=== PATIENT | female | born 2000 | race Caucasian/White ===

== ENCOUNTER → 2025-04-25 | Outpatient (CLI) | payer OTHER | LOC: M RAD 15:32 | PROVIDERS: ATTEND Nurse Practitioner Family | DX: O10.913 Unspecified pre-existing hypertension complicating pregnancy, third trimester (principal); Z3A.30 30 weeks gestation of pregnancy ==

== ENCOUNTER → 2025-05-29 | Outpatient (REF) | payer OTHER | LOC: M PLALAB 10:37 | PROVIDERS: ATTEND Nurse Practitioner Family | DX: Z3A.35 35 weeks gestation of pregnancy (principal) ==

== ENCOUNTER → 2025-05-30 | Outpatient (CLI) | payer OTHER | LOC: M WHC 11:57 | PROVIDERS: ATTEND Nurse Practitioner Family | DX: O10.913 Unspecified pre-existing hypertension complicating pregnancy, third trimester (principal); Z3A.36 36 weeks gestation of pregnancy ==

== ENCOUNTER 2025-06-21 16:52 | Outpatient (CLI) | payer OTHER ==
[~2025-06-21] VITALS: Ht 157.5 cm; Wt 93.3 kg
[2025-06-21] VITALS (9 sets, daily range): BP systolic 110–144; BP diastolic 60–96; O2SAT 98
[2025-06-21] MEDS ORDERED: TUMS500C PO (17:18)
[2025-06-21] MEDS ORDERED: ASPI81CH33 PO (17:18)
[2025-06-21] MEDS ORDERED: ACET-907 PO (17:18)
[2025-06-21] MEDS ORDERED: PRENTAB9 PO (17:18)
[2025-06-21] MEDS ORDERED: LABE100T40 PO (17:18)
[2025-06-21] MEDS ORDERED: HOME MED LIST COMPLETE! XX SCH (17:50)
[2025-06-21 18:38] LABS: TOTAL PROTEIN,RANDOM URINE < 6.0 MG/DL (0.0-14.0)
[2025-06-21 19:29] LABS: PLATELET COUNT, AUTOMATED 315 10^3/uL (150-450)
[2025-06-21 19:53] LABS: LDH LACTATE DEHYDROGENASE 169 U/L (120-246)
[2025-06-21 19:54] LABS: ALT/SGPT 20 U/L (7.0-40); AST/SGOT 22 U/L (<34); CREATININE FOR GFR 0.71 MG/DL (0.55-1.30); GLOMERULAR FILTRATION RATE > 90.0 (>60)
== END 2025-06-21 22:03 | disposition home or self-care (01) ==
LOC: M LDO 16:52
PROVIDERS: ATTEND Obstetrics & Gynecology
DX: O10.013 Pre-existing essential hypertension complicating pregnancy, third trimester (principal); O26.893 Other specified pregnancy related conditions, third trimester; R10.2 Pelvic and perineal pain; Z3A.39 39 weeks gestation of pregnancy
CPT/HCPCS: 59025; 82247; 82570; 83615; 84156; 84450; 84460; 84550; 85027; G0463

== ENCOUNTER → 2025-06-21 | Outpatient (CLI) | payer OTHER ==
[~2025-06-21] MED LIST: ACET-907 PO; ASPI81CH33 PO; LABE100T40 PO; PRENTAB9 PO; TUMS500C PO
== END ==
LOC: M WHC 15:05
PROVIDERS: ATTEND Nurse Practitioner Family
DX: O10.913 Unspecified pre-existing hypertension complicating pregnancy, third trimester (principal)

== ENCOUNTER 2025-06-22 10:53 | Inpatient (IN) | payer OTHER ==
[2025-06-22] VITALS (25 sets, daily range): BP systolic 109–155; BP diastolic 57–95
[~2025-06-22] VITALS: Ht 157.5 cm; Wt 91.5 kg
[2025-06-22] MEDS: LR 1,000 ML IV SCH (05:29)
[2025-06-22] MEDS ORDERED: CARBOPROST TROMETHAMINE 250 MCG/ML AMP IM PRN (14:15)
[2025-06-22] MEDS ORDERED: LIDOCAINE 1% MDV 20 ML VIAL INFIL PRN (14:15)
[2025-06-22] MEDS ORDERED: METHYLERGONOVINE MALEATE 0.2 MG/ML 1 ML VIAL IM PRN (14:15)
[2025-06-22 14:18] LABS: PLATELET COUNT, AUTOMATED 316 10^3/uL (150-450)
[2025-06-22 14:40] LABS: HEPATITIS B SURFACE ANTIBODY NEGATIVE (POSITIVE)
[2025-06-22] MEDS: miSOPROStol 50 MCG 1/2 TABLET PO SCH (14:47)
[2025-06-22 15:04] LABS: HIV 1&2 SCREEN NEGATIVE (NEGATIVE)
[2025-06-22 15:12] LABS: HEPATITIS C VIRUS ABY INDEX < 0.02 INDEX (<0.8)
[2025-06-22] MEDS: LABETALOL 100 MG TAB PO SCH (20:56)
[2025-06-22] MEDS: LACTATED RINGER'S 1000 ML IV STA (21:25)
[2025-06-22] MEDS ORDERED: NALOXONE INJ 0.4 MG/1 ML VIAL IV PRN (21:55)
[2025-06-22] MEDS ORDERED: EPIDURAL/PCA KEYS XX PRN (21:55)
[2025-06-22] MEDS ORDERED: LR 500 ML IV PRN (21:55)
[2025-06-22] MEDS ORDERED: diphenhydrAMINE 50 MG/ML VIAL IV PRN (21:55)
[2025-06-22] MEDS: FENTANYL/ROPIVACAINE/NACL BAG 100 ML EPIDURAL SCH (22:04)
[2025-06-22] MEDS: OXYTOCIN DRIP 30 UNITS in IV 1 EA IV SCH (22:46)
[2025-06-23] VITALS (59 sets, daily range): BP systolic 94–163; BP diastolic 50–102; O2SAT 98–99
[2025-06-23] MEDS: CALCIUM CARBONATE 500 MG CHEW U/D PO ONE (03:08)
[2025-06-23] MEDS: CALCIUM CARBONATE 500 MG CHEW U/D PO PRN (09:16)
[2025-06-23] MEDS ORDERED: HOME MED LIST COMPLETE! XX SCH (10:15)
[2025-06-23] MEDS: OXYTOCIN DRIP 30 UNITS in IV 1 EA IV PRN (15:57)
[2025-06-23 16:05] LABS: CORD GAS ABE A -15.8; CORD GAS ABE V -14.4; CORD GAS HCO3 A 15.0 MMOL/L; CORD GAS HCO3 V 16.9 MMOL/L; CORD GAS O2 SAT A 31.0 %; CORD GAS O2 SAT V 17.8 %; CORD GAS PCO2 A 57.4 mmHg; CORD GAS PCO2 V 64.8 mmHg; CORD GAS PH A 7.034 UNITS; CORD GAS PH V 7.035 UNITS; CORD GAS PO2 A 19.4 mmHg; CORD GAS PO2 V 14.1 mmHg; CORD GAS SBC A 11.4 MMOL/L; CORD GAS SBC V 12.2 MMOL/L; CORD GAS TCO2 A 16.7 MMOL/L; CORD GAS TCO2 V 18.9 MMOL/L
[2025-06-23] MEDS: TRANEXAMIC ACID INJection 1,000 MG in NS 100 ML IV PRN (16:17)
[2025-06-23] MEDS ORDERED: MOM 30 ML SUSPENSION UDC PO PRN (16:35)
[2025-06-23] MEDS ORDERED: RHOGAM 300MCG (1500IU) INJ IM SCH (16:35)
[2025-06-23] MEDS: OXYTOCIN DRIP 30 UNITS in IV 1 EA IV SCH (16:50)
[2025-06-23] MEDS: PRENATAL VITAMINS CHEWABLE TABLET PO SCH (18:02)
[2025-06-23] MEDS: FERROUS SULFATE 325 MG TAB PO SCH (18:02)
[2025-06-23] MEDS: IBUPROFEN 800 MG TAB PO PRN (18:34)
[2025-06-23] MEDS: ONDANSETRON 4MG 2ML VIAL IV PRN (19:49)
[2025-06-23] MEDS: ACETAMINOPHEN 500 MG TAB PO PRN (19:49)
[2025-06-23] MEDS: DIBUCAINE 1% OINTMENT 30 GM TOP PRN (20:33)
[2025-06-23] MEDS: DOCUSATE SODIUM 100 MG CAPSULE PO SCH (20:41)
[2025-06-24 05:59] VITALS: BP 118/70; O2SAT 98
[2025-06-24] MEDS: ANUSOL HC CREAM 30 GM TOP PRN (13:31)
[2025-06-24 19:00] VITALS: BP 135/79
[2025-06-25 06:00] VITALS: BP 122/76; O2SAT 98
[2025-06-25] MEDS: MEASLES,MUMPS,RUBELLA VACCINE INJ (MMR-II) SC.IMMUN ONE (07:08)
[2025-06-25 08:43] VITALS: BP 132/74
[2025-06-25] MEDS: FLUZONE VACCINE TRIVALENT PF(25-26) 0.5ML SYRINGE IM.IMMUN ONE (08:44)
[2025-06-25] MEDS ORDERED: ACET-683 PO (12:24)
[2025-06-25] MEDS ORDERED: IBUP80TA PO (12:24)
== END 2025-06-25 15:46 | disposition home or self-care (01) | DRG 807 ==
LOC: M LDO 10:53 → M LDI 11:59 → M OBS 06-23 19:02
PROVIDERS: ADMIT Advanced Practice Midwife; ATTEND Obstetrics & Gynecology
PROC: 3E0P7GC Introduction of Other Therapeutic Substance into Female Reproductive, Via Natural or Artificial Opening (ICD-10-PCS; 2025-06-22)
PROC: 10D07Z6 Extraction of Products of Conception, Vacuum, Via Natural or Artificial Opening (ICD-10-PCS; principal; 2025-06-23)
PROC: 0KQM0ZZ Repair Perineum Muscle, Open Approach (ICD-10-PCS; 2025-06-23)
DX: O10.02 Pre-existing essential hypertension complicating childbirth (principal); Z37.0 Single live birth; Z3A.39 39 weeks gestation of pregnancy; Z79.82 Long term (current) use of aspirin; Z79.899 Other long term (current) drug therapy; O75.81 Maternal exhaustion complicating labor and delivery; O32.6XX0 Maternal care for compound presentation, not applicable or unspecified; O70.1 Second degree perineal laceration during delivery

== ENCOUNTER 2025-06-26 18:39 | Emergency (ER) | payer OTHER ==
[~2025-06-26] VITALS: Ht 157.5 cm; Wt 86.9 kg
[~2025-06-26 18:39] MED LIST changes: +ACET-683 PO; +IBUP80TA PO
[2025-06-26 18:47] VITALS: TEMP 98.2
[2025-06-26 20:07] LABS: BASO # 0.0 10^3/uL (0.0-0.2); BASO % 0.3 % (0.0-1.0); EOS # 0.5 10^3/uL (0.0-0.5); EOS % 3.6 % (0.0-3.0); LYMPH # 2.7 10^3/uL (1.5-5.0); LYMPH % 21.0 % (24.0-44.0); MONO # 0.8 10^3/uL (0.0-0.8); MONO % 5.8 % (2.0-8.0); NEUTROPHILS # 8.8 10^3/uL (1.5-8.5); NEUTROPHILS % 68.5 % (36.0-66.0); PLATELET COUNT, AUTOMATED 362 10^3/uL (150-450)
[2025-06-26 20:40] LABS: C REACTIVE PROTEIN QUANTITATIV 3.82 MG/DL (<1.0)
[2025-06-26 20:41] LABS: ALT/SGPT 49 U/L (7.0-40); AST/SGOT 52 U/L (<34); CALCIUM LEVEL 9.0 MG/DL (8.5-10.1); CARBON DIOXIDE LEVEL 26 MMOL/L (20-31); CHLORIDE LEVEL 105 MMOL/L (98-107); CREATININE FOR GFR 0.77 MG/DL (0.55-1.30); GLOMERULAR FILTRATION RATE > 90.0 (>60); MAGNESIUM LEVEL 1.8 MG/DL (1.8-2.4); POTASSIUM SERUM 4.0 MMOL/L (3.5-5.1); SODIUM LEVEL 141 MMOL/L (136-145)
[2025-06-26] MEDS: ONDANSETRON 4MG/2ML VIAL IV ONE (21:10)
[2025-06-26] MEDS: NS 500 ML IV ONE (21:10)
[2025-06-26 21:31] LABS: INR 0.9
[2025-06-26 21:38] LABS: TOTAL PROTEIN,RANDOM URINE 16.7 MG/DL (0.0-14.0)
[2025-06-26] MEDS ORDERED: PROHANCE 279.3MG/ML 5ML VIAL As Ordered ONE (22:22)
[2025-06-26] MEDS ORDERED: PROHANCE 279.3MG/ML 15ML VIAL As Ordered ONE (22:23)
[2025-06-27 00:14] VITALS: BP 135/78; O2SAT 97
== END 2025-06-27 01:08 | disposition home or self-care (01) ==
LOC: M ED 18:39
DX: M51.26 Other intervertebral disc displacement, lumbar region (principal); M51.371 Other intervertebral disc degeneration, lumbosacral region with lower extremity pain only; R33.9 Retention of urine, unspecified; R20.2 Paresthesia of skin; Z79.1 Long term (current) use of non-steroidal anti-inflammatories (NSAID); Z79.899 Other long term (current) drug therapy
CPT/HCPCS: 36415; 51702; 72131; 72158; 80053; 82330; 82570; 83735; 84156; 85025; 85610; 85730; 86140; 96361; 96374; 96375; 99284; A9576; J2405; J2765

== ENCOUNTER → 2025-09-05 | Outpatient (REF) | payer OTHER ==
[2025-09-05 14:55] LABS: APPEARANCE, URINE CLOUDY (CLEAR); BACTERIA, URINE AUTO 1+ (NEGATIVE); BILIRUBIN, URINE AUTO NEGATIVE (NEGATIVE); BLOOD, URINE BLOOD 2+ (NEGATIVE); GLUCOSE, URINE (UA) AUTO NEGATIVE (NEGATIVE); KETONE, URINE AUTO NEGATIVE (NEGATIVE); LEUKOCYTE ESTERASE, URINE AUTO 2+ (NEGATIVE); NITRITE, URINE AUTO POSITIVE (NEGATIVE); PROTEIN, URINE AUTO 1+ mg/dL (NEGATIVE); RBC, URINE AUTO 152 /HPF (0-3); SPECIFIC GRAVITY URINE AUTO 1.013 (1.002-1.035); SQUAMOUS EPITHELIAL CELL UR AU 1 /HPF (0-6); UROBILINOGEN, URINE AUTO 0.2 mg/dL (0.0-2.0); WBC, URINE AUTO TNTC /HPF (0-3)
== END ==
LOC: M SMT 13:11
PROVIDERS: ATTEND Nurse Practitioner Family
DX: R39.9 Unspecified symptoms and signs involving the genitourinary system (principal)

== ENCOUNTER → 2025-09-24 | Outpatient (REF) | payer OTHER ==
[2025-09-24 15:52] LABS: APPEARANCE, URINE CLOUDY (CLEAR); BACTERIA, URINE AUTO 2+ (NEGATIVE); BILIRUBIN, URINE AUTO NEGATIVE (NEGATIVE); BLOOD, URINE BLOOD NEGATIVE (NEGATIVE); GLUCOSE, URINE (UA) AUTO NEGATIVE (NEGATIVE); KETONE, URINE AUTO NEGATIVE (NEGATIVE); LEUKOCYTE ESTERASE, URINE AUTO 2+ (NEGATIVE); MUCUS, URINE LARGE (NEGATIVE); NITRITE, URINE AUTO POSITIVE (NEGATIVE); PROTEIN, URINE AUTO 3+ mg/dL (NEGATIVE); RBC, URINE AUTO 27 /HPF (0-3); SPECIFIC GRAVITY URINE AUTO 1.025 (1.002-1.035); SQUAMOUS EPITHELIAL CELL UR AU 0 /HPF (0-6); UROBILINOGEN, URINE AUTO 0.2 mg/dL (0.0-2.0); WBC, URINE AUTO TNTC /HPF (0-3)
== END ==
LOC: M SMT 15:32
PROVIDERS: ATTEND Nurse Practitioner Family
DX: R39.9 Unspecified symptoms and signs involving the genitourinary system (principal)